=== PATIENT | male | born 1970 | race Two or more races ===

== ENCOUNTER → 2025-08-24 | Outpatient (CLI) | payer MEDICAID, SELFPAY ==
--- NOTE | 2025-08-24 16:58 | XR_ITS ---
Examination: Foot, left, 3 views Technique: AP, oblique, lateral views foot, 3 views Date and time of exam: August 24, 2025, 1659 hours INDICATIONS: Twisting injury to the foot 30 days ago, pain FINDINGS: Advanced osteoarthritis first metatarsophalangeal joint Old healed fracture second metatarsal 6 mm plantar bony calcaneal spur No acute fracture IMPRESSION: No acute fracture
--- NOTE | 2025-08-24 16:58 | XR_ITS ---
EXAMINATION: Ankle, left 3 views. Technique: Ankle AP, oblique, lateral 3 views Date and time of exam: August 20, 2025, 1659 hours INDICATIONS: Twisting injury to the ankle 30 days ago. FINDINGS: No acute ankle fracture or dislocation 6 mm plantar bony calcaneal spur IMPRESSION: No acute fracture
== END | disposition home or self-care (01) ==
PROVIDERS: PCP Physician Assistant; Referring Provider Physician Assistant; Visit Provider Physician Assistant
DX: S99.912A Unspecified injury of left ankle, initial encounter (principal); X50.1XXA Overexertion from prolonged static or awkward postures, initial encounter
CPT/HCPCS: 73610; 73630